=== PATIENT | male | born 1985 | race Hispanic/Latino ===

== ENCOUNTER → 2020-05-10 | Outpatient (CLI) | payer OTHER | END | disposition home or self-care (01) | LOC: RAH 07:41 | PROVIDERS: ATTEND Family Medicine | DX: M23.242 Derangement of anterior horn of lateral meniscus due to old tear or injury, left knee (principal); M17.12 Unilateral primary osteoarthritis, left knee | CPT/HCPCS: 73721 ==

== ENCOUNTER 2020-06-06 05:57 | Day surgery (SDC) | payer OTHER ==
[2020-06-04 08:50] LABS: BASOPHILS % (AUTO) 0.4 % (0.0-5.0); HEMATOCRIT 46.2 % (42-54); LYMPHOCYTES % (AUTO) 41.2 % (21.0-51.0); MEAN CORPUSCULAR HEMOGLOBIN 30.2 pg (27.0-33.0); MEAN CORPUSCULAR HGB CONC 34.4 g/dL (32.0-36.0); MEAN CORPUSCULAR VOLUME 87.7 fL (79-99); MONOCYTES % (AUTO) 6.8 % (3.0-13.0); NEUTROPHILS % (AUTO) 49.2 % (40.0-77.0); PLATELET COUNT (AUTO) 210 K/uL (130-400); RED BLOOD CELL COUNT(AUTO) 5.27 MIL/uL (4.50-6.20); RED CELL DISTRIBUTION WIDTH 11.7 % (11.0-15.5)
[2020-06-04 08:56] LABS: CREATININE 1.1 mg/dL (0.5-1.5); POTASSIUM 4.2 mmol/L (3.5-5.1)
[2020-06-04 11:11] VITALS: BP 123/62
[2020-06-06] VITALS (21 sets, daily range): BP systolic 104–139; BP diastolic 55–92
[~2020-06-06] VITALS: Ht 175.3 cm; Wt 80.8 kg
[2020-06-06] MEDS: CEFAZOLIN SODIUM 1 GM VIAL IVP SCH ×2 (05:00→09:00)
[2020-06-06] MEDS ORDERED: LACTATED RINGERS 1000ML 1,000 ML IV ONE (06:40)
[2020-06-06] MEDS ORDERED: SODIUM CHLORIDE 0.9% 10 ML VIAL ONE (06:41)
[2020-06-06] MEDS ORDERED: MIDAZOLAM HCL 1 MG/ML 2ML VIAL ONE (07:15)
[2020-06-06] MEDS ORDERED: LIDOCAINE PF 2% 5ML ABBOJECT ONE (07:15)
[2020-06-06] MEDS ORDERED: GLYCOPYRROLATE 1 MG/5 ML SYRINGE ONE (07:15)
[2020-06-06] MEDS ORDERED: DEXAMETHASONE SOD PHOSPHATE 10MG/ML 1ML VIAL ONE (07:15)
[2020-06-06] MEDS ORDERED: SUCCINYLCHOLINE CHLORIDE 20 MG/ML 10 ML VIAL ONE (07:15)
[2020-06-06] MEDS ORDERED: NEOSTIGMINE 5MG/5ML SYR IV ONE (07:17)
[2020-06-06] MEDS ORDERED: PROPOFOL 10 MG/ML 20ML VIAL IV ONE (07:17)
[2020-06-06] MEDS ORDERED: ROPIVACAINE 0.5% 5MG/ML 30ML IJ ONE (07:18)
[2020-06-06] MEDS ORDERED: FENTANYL CITRATE PF 50 MCG/1 ML 2ML VIAL ONE ×3 (07:18→10:42)
[2020-06-06] MEDS ORDERED: ROCURONIUM 10MG/1ML SYR 10 MG/ML ML ONE (07:18)
[2020-06-06] MEDS ORDERED: ONDANSETRON HCL 4 MG/2 ML VIAL ONE ×2 (07:18→10:45)
[2020-06-06] MEDS ORDERED: CEFAZOLIN SODIUM 1 GM VIAL ONE (07:50)
[2020-06-06] MEDS ORDERED: MEPERIDINE-PF 25 MG/ML SYG ONE ×3 (11:41→12:29)
[2020-06-06] MEDS ORDERED: KETOROLAC TROMETHAMINE 30MG/ML ONE (11:42)
[2020-06-06] MEDS ORDERED: IBUP-2070 PO (12:58)
[2020-06-06] MEDS ORDERED: HYDR-4457 PO (12:58)
[2020-06-06] MEDS ORDERED: CEPH500B PO (12:58)
[2020-06-06] MEDS ORDERED: SCOPOLAMINE HYDROBROMIDE 1 EACH ADH..PATCH TD SCH (14:15)
== END 2020-06-06 14:20 | disposition home or self-care (01) ==
LOC: DAH 05:57 → EDSTATUS 11:00 → DAH 14:20
PROVIDERS: ATTEND Orthopaedic Surgery
DX: M23.007 Cystic meniscus, unspecified meniscus, left knee (principal); M23.242 Derangement of anterior horn of lateral meniscus due to old tear or injury, left knee; Z20.828 Contact with and (suspected) exposure to other viral communicable diseases
CPT/HCPCS: 27347; 27403; 36415; 64447; 76942; 80048; 85025; A4215; A4221; A4222; A4223 ×2; A4606; A4649 ×2; A4657; A4663; A4930; A6223; C1713; C9803; G0168; J0330; J0690 ×2; J1100; J1885; J2001; J2175 ×2; J2250; J2405 ×2; J2704; J2710; J2795; J3010 ×3; J3490; J7120 ×2; U0003

== ENCOUNTER 2022-06-24 07:12 | Emergency (ER) | payer OTHER ==
[~2022-06-24] VITALS: Ht 172.7 cm; Wt 75.5 kg
[~2022-06-24 07:12] MED LIST: CEPH500B PO; HYDR-4457 PO; IBUP-2070 PO
[2022-06-24 07:17] VITALS: BP 122/77
[2022-06-24] MEDS ORDERED: ORPHENADRINE CITRATE 30 MG/ML ML IM ONE (07:30)
[2022-06-24] MEDS ORDERED: KETOROLAC 30MG VIAL (30MG/ML) IM ONE (07:30)
[2022-06-24] MEDS ORDERED: METH-662 PO (08:00)
== END 2022-06-24 08:13 | disposition home or self-care (01) ==
LOC: EDH 07:12
DX: M62.830 Muscle spasm of back (principal); Z79.1 Long term (current) use of non-steroidal anti-inflammatories (NSAID); Z79.899 Other long term (current) drug therapy
CPT/HCPCS: 99284; 96372; J1885; J2360